=== PATIENT | male | born 1970 | race Caucasian/White ===

== ENCOUNTER 2021-10-31 06:31 | Day surgery (SDC) | payer BC ==
[~2021-10-31 06:31] MED LIST: Dextrose 5%-0.45% NaCl 1,000 ML IV SCH; Midazolam 1 MG/ML 2 ML SDV ONE; Sodium Chloride 0.9% 10 ML Syringe FLUSH PRN; fentaNYL 100 MCG/2 ML SDV ONE
[2021-10-31] MEDS ORDERED: fentaNYL 100 MCG/2 ML SDV IV ONE ×3 (06:32→07:54)
[2021-10-31] MEDS ORDERED: Midazolam 1 MG/ML 2 ML SDV IV ONE ×7 (06:32→08:03)
== END 2021-10-31 10:25 | disposition home or self-care (01) ==
LOC: DL.ENDO 06:31
PROVIDERS: ATTEND Internal Medicine Gastroenterology
DX: K62.5 Hemorrhage of anus and rectum (principal); K64.8 Other hemorrhoids; K57.30 Diverticulosis of large intestine without perforation or abscess without bleeding; Z01.812 Encounter for preprocedural laboratory examination; Z20.822 Contact with and (suspected) exposure to COVID-19
CPT/HCPCS: 45378; 87635; J2250; J3010; J7042; U0002

== ENCOUNTER 2022-04-04 10:08 | Emergency (ER) | payer BC ==
[2022-04-04 11:05] LABS: CORONAVIRUS COVID-19 NAA NEGATIVE (NEGATIVE)
== END 2022-04-04 11:27 | disposition home or self-care (01) ==
LOC: DL.ED 10:08
DX: B34.9 Viral infection, unspecified (principal); E78.00 Pure hypercholesterolemia, unspecified; I10 Essential (primary) hypertension; E10.9 Type 1 diabetes mellitus without complications; E66.9 Obesity, unspecified; Z68.39 Body mass index [BMI] 39.0-39.9, adult; Z79.82 Long term (current) use of aspirin; Z79.899 Other long term (current) drug therapy; Z79.4 Long term (current) use of insulin; Z20.822 Contact with and (suspected) exposure to COVID-19
CPT/HCPCS: 0240U; 99283

== ENCOUNTER 2025-04-25 02:53 | Emergency (ER) | payer BC ==
[2025-04-25] MEDS: Take Home: Acetaminophen/oxyCODONE 325-5 MG, 5 Tab Pack PO ONE (03:31)
== END 2025-04-25 03:40 | disposition home or self-care (01) ==
LOC: DL.ED 02:53
DX: K08.89 Other specified disorders of teeth and supporting structures (principal); E10.9 Type 1 diabetes mellitus without complications; Z86.16 Personal history of COVID-19; Z79.82 Long term (current) use of aspirin; Z79.899 Other long term (current) drug therapy; Z79.4 Long term (current) use of insulin; Z88.5 Allergy status to narcotic agent
CPT/HCPCS: 99282; A9270

== ENCOUNTER 2025-04-26 17:04 | Emergency (ER) | payer BC ==
[2025-04-26] MEDS: Ondansetron 4 MG Tab.DIS PO ONE (17:30)
== END 2025-04-26 17:48 | disposition home or self-care (01) ==
LOC: DL.ED 17:04
DX: R42 Dizziness and giddiness (principal); R41.0 Disorientation, unspecified; T40.2X5A Adverse effect of other opioids, initial encounter; E10.9 Type 1 diabetes mellitus without complications; Z88.6 Allergy status to analgesic agent; Z79.82 Long term (current) use of aspirin; Z79.4 Long term (current) use of insulin; Z79.899 Other long term (current) drug therapy; Z86.16 Personal history of COVID-19
CPT/HCPCS: 99284; A9270-GY